=== PATIENT | male | born 1995 | race Hispanic/Latino ===

== ENCOUNTER 2021-03-04 08:00 | Inpatient (IN) | payer SELFPAY ==
[2021-03-04] VITALS (20 sets, daily range): BP systolic 137–176; BP diastolic 71–91
[~2021-03-04] VITALS: Ht 193 cm; Wt 222.5 kg
[2021-03-04 08:41] LABS: BASOPHILS % (AUTO) 0.3 % (0.0-5.0); EOSINOPHILS % (AUTO) 0.6 % (0.0-8.0); HEMATOCRIT 43.2 % (42-54); LYMPHOCYTES % (AUTO) 10.8 % (21.0-51.0); MEAN CORPUSCULAR HEMOGLOBIN 27.5 pg (27.0-33.0); MEAN CORPUSCULAR HGB CONC 33.3 g/dL (32.0-36.0); MEAN CORPUSCULAR VOLUME 82.4 fL (79-99); MONOCYTES % (AUTO) 6.5 % (3.0-13.0); NEUTROPHILS % (AUTO) 81.5 % (40.0-77.0); PLATELET COUNT (AUTO) 260 K/uL (130-400); RED BLOOD CELL COUNT(AUTO) 5.24 MIL/uL (4.50-6.20); RED CELL DISTRIBUTION WIDTH 13.6 % (11.0-15.5)
[2021-03-04] MEDS ORDERED: ONDANSETRON HCL 4 MG/2 ML VIAL ONE (08:52)
[2021-03-04] MEDS ORDERED: HYDROMORPHONE 1 MG/1 ML AMP ONE (08:53)
[2021-03-04] MEDS ORDERED: SODIUM CHLORIDE 0.9% 50 ML IV ONE (08:54)
[2021-03-04 09:05] LABS: ALANINE AMINOTRANSFERASE 49 U/L (12-78); ALBUMIN 3.4 g/dL (3.5-5.0); AMYLASE 30 U/L (25-115); ASPARTATE AMINOTRANSFERASE 21 U/L (10-37); CARBON DIOXIDE 25 mmol/L (21-32); CHLORIDE 101 mmol/L (101-111); CREATININE 0.9 mg/dL (0.5-1.5); GLOMERULAR FILTR. RATE CALC 109 mL/min (>60); GLUCOSE,RANDOM 117 mg/dL (70-105); POTASSIUM 3.5 mmol/L (3.5-5.1); SODIUM SERUM 136 mmol/L (136-145); TOTAL PROTEIN, SERUM 8.5 g/dL (6.0-8.3); UREA NITROGEN, BLOOD 9 mg/dL (7-18)
[2021-03-04 09:06] LABS: LIPASE < 50 U/L (114-286)
[2021-03-04] MEDS ORDERED: ACETAMINOPHEN EXTRA STRENGTH 500 MG TABLET ONE (09:37)
[2021-03-04] MEDS ORDERED: IOHEXOL 350 MG/ML 100ML INFUS..BTL IV ONE (12:57)
[2021-03-04] MEDS ORDERED: SODIUM CHLORIDE 0.9% 100 ML IV ONE (14:17)
[2021-03-04] MEDS ORDERED: ZOSYN 3.375GM+NS 50ML 50 ML IV ONE (14:17)
[2021-03-04] MEDS ORDERED: SODIUM CHLORIDE 0.9% 1000ML 1,000 ML IV ONE (14:18)
[2021-03-04] MEDS ORDERED: ACETAMINOPHEN 325 MG TAB PO PRN (15:30)
[2021-03-04] MEDS ORDERED: MORPHINE SULFATE 2 MG/ML 1ML SYG IVP PRN (15:30)
[2021-03-04] MEDS ORDERED: KETOROLAC TROMETHAMINE 15MG/ML IV PRN (15:30)
[2021-03-04] MEDS ORDERED: ONDANSETRON HCL 4 MG/2 ML VIAL IVP PRN (15:30)
[2021-03-04] MEDS: ZOSYN 3.375GM+NS 50ML 50 ML IV SCH (15:30)
[2021-03-04] MEDS ORDERED: LIDOCAINE PF 2% 5ML ABBOJECT ONE (16:32)
[2021-03-04] MEDS ORDERED: SUCCINYLCHOLINE 200MG/10ML SYR ONE (16:32)
[2021-03-04] MEDS ORDERED: MIDAZOLAM HCL 1 MG/ML 2ML VIAL ONE (16:32)
[2021-03-04] MEDS ORDERED: ROCURONIUM 10MG/1ML SYR 10 MG/ML ML ONE ×3 (16:33→18:32)
[2021-03-04] MEDS ORDERED: PROPOFOL 10 MG/ML 20ML VIAL IV ONE (16:33)
[2021-03-04] MEDS ORDERED: KETAMINE 50MG/ML SYRINGE 50 MG/ML DISP.SYRIN IV ONE (16:38)
[2021-03-04] MEDS ORDERED: BUPIVACAINE/EPI/PF 0.5% 30ML VIAL IJ ONE (16:56)
[2021-03-04] MEDS ORDERED: CEFAZOLIN SODIUM 1 GM VIAL ONE (16:56)
[2021-03-04] MEDS ORDERED: SUGAMMADEX SODIUM 200 MG/2 ML VIAL IV ONE (17:03)
[2021-03-04] MEDS ORDERED: FENTANYL CITRATE PF 50 MCG/1 ML 5ML AMP IV ONE (17:06)
[2021-03-04] MEDS: LACTATED RINGERS 1000ML 1,000 ML IV SCH ×2 (19:20→20:26)
[2021-03-04] MEDS ORDERED: KETOROLAC TROMETHAMINE 30MG/ML ONE (19:39)
[2021-03-04] MEDS ORDERED: MEPERIDINE-PF 25 MG/ML SYG ONE (19:39)
[2021-03-04] MEDS ORDERED: FENTANYL CITRATE PF 50 MCG/1 ML 2ML VIAL ONE (19:42)
[2021-03-05] MEDS: ZOSYN 3.375GM+NS 50ML 50 ML IV SCH ×4 (00:06→23:19)
[2021-03-05 03:55] VITALS: BP 136/75
[2021-03-05 05:35] LABS: BASOPHILS % (AUTO) 0.1 % (0.0-5.0); EOSINOPHILS % (AUTO) 0.1 % (0.0-8.0); HEMATOCRIT 38.3 % (42-54); LYMPHOCYTES % (AUTO) 7.4 % (21.0-51.0); MEAN CORPUSCULAR HEMOGLOBIN 27.6 pg (27.0-33.0); MEAN CORPUSCULAR HGB CONC 32.9 g/dL (32.0-36.0); MEAN CORPUSCULAR VOLUME 83.8 fL (79-99); MONOCYTES % (AUTO) 7.6 % (3.0-13.0); NEUTROPHILS % (AUTO) 84.4 % (40.0-77.0); PLATELET COUNT (AUTO) 217 K/uL (130-400); RED BLOOD CELL COUNT(AUTO) 4.57 MIL/uL (4.50-6.20); RED CELL DISTRIBUTION WIDTH 13.8 % (11.0-15.5); WHITE BLOOD COUNT (AUTO) 13.4 K/uL (4.8-10.8)
[2021-03-05] MEDS: LACTATED RINGERS 1000ML 1,000 ML IV SCH ×2 (05:44→17:47)
[2021-03-05 06:06] LABS: ALBUMIN 2.8 g/dL (3.5-5.0); BILIRUBIN,TOTAL 1.4 mg/dL (0.2-1.0); CREATININE 0.9 mg/dL (0.5-1.5); POTASSIUM 3.4 mmol/L (3.5-5.1); TOTAL PROTEIN, SERUM 7.3 g/dL (6.0-8.3)
[2021-03-05] MEDS ORDERED: POTASSIUM CHLORIDE 20 MEQ ERTAB PO SCH (07:30)
[2021-03-05] MEDS: MORPHINE SULFATE 4 MG/1ML SYG IV PRN ×3 (08:30→17:47)
[2021-03-05 08:42] VITALS: BP 122/73
[2021-03-05 11:32] VITALS: BP 113/71
[2021-03-05 16:13] VITALS: BP 124/79
[2021-03-05 20:36] VITALS: BP 112/63
[2021-03-05 23:19] VITALS: BP 96/56
[2021-03-06] MEDS: LACTATED RINGERS 1000ML 1,000 ML IV SCH ×2 (03:32→12:00)
[2021-03-06] MEDS: MORPHINE SULFATE 4 MG/1ML SYG IV PRN (03:33)
[2021-03-06 03:58] VITALS: BP 138/76
[2021-03-06 05:09] LABS: BASOPHILS % (AUTO) 0.3 % (0.0-5.0); EOSINOPHILS % (AUTO) 0.4 % (0.0-8.0); HEMATOCRIT 36.2 % (42-54); LYMPHOCYTES % (AUTO) 9.2 % (21.0-51.0); MEAN CORPUSCULAR HEMOGLOBIN 26.8 pg (27.0-33.0); MEAN CORPUSCULAR HGB CONC 32.3 g/dL (32.0-36.0); MONOCYTES % (AUTO) 9.2 % (3.0-13.0); NEUTROPHILS % (AUTO) 80.3 % (40.0-77.0); PLATELET COUNT (AUTO) 235 K/uL (130-400); RED BLOOD CELL COUNT(AUTO) 4.36 MIL/uL (4.50-6.20); RED CELL DISTRIBUTION WIDTH 13.5 % (11.0-15.5); WHITE BLOOD COUNT (AUTO) 11.8 K/uL (4.8-10.8)
[2021-03-06] MEDS: ZOSYN 3.375GM+NS 50ML 50 ML IV SCH (06:54)
[2021-03-06 10:04] VITALS: BP 150/85
[2021-03-06 11:39] VITALS: BP 133/78
== END 2021-03-06 16:24 | disposition home or self-care (01) | DRG 342 ==
LOC: EDH 08:00 → OBSVTOIN 08:01 → EDHIP 08:01 → INTOOBSV 08:01 → 3DH 20:22
PROVIDERS: ADMIT Internal Medicine; ATTEND Internal Medicine
PROC: 0DTJ4ZZ Resection of Appendix, Percutaneous Endoscopic Approach (ICD-10-PCS; principal; 2021-03-04 16:35)
DX: K35.80 Unspecified acute appendicitis (principal); Z68.43 Body mass index [BMI] 50.0-59.9, adult; F12.10 Cannabis abuse, uncomplicated; K76.0 Fatty (change of) liver, not elsewhere classified; E66.01 Morbid (severe) obesity due to excess calories; D72.829 Elevated white blood cell count, unspecified; K59.00 Constipation, unspecified
CPT/HCPCS: 36415; 71045; 74177; 76705; 80053; 82150; 83690; 84484; 85025; 87040; 93005; G0378; J0330; J0690; J1170; J1885; J2001; J2175; J2250; J2270; J2405; J2543; J2704; J3010; J3490; J7030; J7120; Q9967

== ENCOUNTER → 2021-04-10 | Emergency (ER) | payer SELFPAY ==
[~2021-04-10] VITALS: Ht 193 cm; Wt 224.5 kg
[~2021-04-10] MED LIST: CEFTRIAXONE SODIUM 1 GM ONE; CEFTRIAXONE SODIUM 500 MG (DOSE 250-750MG) VIAL IM ONE; LIDOCAINE HCL-MPF 1% 2ML VIAL ONE; PHEN-847 PO; SULF1TAB42 PO
[2021-04-10 15:19] LABS: APPEARANCE,URINE CLOUDY (CLEAR); BILIRUBIN,URINE SMALL (NEGATIVE); GLUCOSE, URINE (UA) NEGATIVE (NEGATIVE); KETONES,URINE 5 mg/dL (NEGATIVE); LEUKOCYTE ESTERASE ,URINE SMALL (NEGATIVE); NITRATE,URINE NEGATIVE (NEGATIVE); OCCULT BLOOD,URINE LARGE (NEGATIVE); PH,URINE 5.5 (5.0-8.0); PROTEIN,URINE >=300 mg/dL (NEGATIVE); UROBILINOGEN,URINE 0.2 mg/dL (0.2-1.0)
[2021-04-10 15:31] LABS: COLOR,URINE DARK YELLOW (YELLOW)
[2021-04-10 15:32] LABS: RBC,URINE TNTC /HPF (0-1)
[2021-04-10 15:33] LABS: BACTERIA,URINE Few /HPF (None Seen); SQUAMOUS EPITHELIAL CELL,UR Rare /HPF (0-2)
[2021-04-10 15:40] VITALS: BP 146/92
[2021-04-10] MEDS: PHENAZOPYRIDINE HCL 200 MG TABLET PO SCH ×4 (17:05→17:08)
== END | disposition home or self-care (01) ==
LOC: EDH 13:50
DX: N30.00 Acute cystitis without hematuria (principal); E66.9 Obesity, unspecified; Z68.44 Body mass index [BMI] 60.0-69.9, adult
CPT/HCPCS: 81001; 87077; 87088; 87186; 96372; 99283; J0696; J3490